=== PATIENT | male | born 1995 | race Caucasian/White ===

== ENCOUNTER 2022-03-17 22:00 | Emergency (ER) | payer OTHER, SELFPAY ==
[2022-03-17 22:04] VITALS: BP 145/110; PULSE 129; RESP 16; TEMP 36.6; O2SAT 97
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
[2022-03-18 00:18] VITALS: RESP 16
[2022-03-18] MEDS: oxyCODONE-APAP 5-325 mg Tablet 2 TAB PO (00:18)
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
== END 2022-03-18 03:22 | disposition home or self-care (01) ==
PROVIDERS: Emergency Provider Emergency Medicine
DX: S02.2XXA Fracture of nasal bones, initial encounter for closed fracture (principal); Y04.2XXA Assault by strike against or bumped into by another person, initial encounter
CPT/HCPCS: 70450; 70486; 72125; 99284

== ENCOUNTER 2023-01-22 13:10 | Emergency (ER) | payer OTHER, SELFPAY ==
[2023-01-22 13:24] VITALS: PULSE 111; RESP 17; TEMP 36.8; O2SAT 97; BMI 30.4
--- NOTE | 2023-01-22 13:34 | ECG_ITS ---
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 Measurements Intervals [place] Rate: 108 P: 23 SC: 147 QRS: 36 QRSD: 82 T: 31 QT: 306 QTc: 412 Interpretive Statements SINUS TACHYCARDIA ABNORMAL RHYTHM ECG No previous ECG available for comparison Electronically Signed On 01-22-2023 17:17:49 CDT by Amanda Ivory M.D. [id number]
--- NOTE | 2023-01-22 14:23 | XRR_ITS ---
PROCEDURE INFORMATION: Exam: XR Chest Exam date and time: 01/22/2023 2:55 PM Age: 27 years old Clinical indication: Pain; Cough and dyspnea; Chest pressure; Patient HX: Chest tightness, dizzy; Additional info: Dyspnea/cough.No history of trauma or recent surgery is provided. TECHNIQUE: Imaging protocol: Radiologic exam of the chest. 1image(s) are provided. Views: 1 view. COMPARISON: CT cervical spin wo con* [id number] 03/18/2022 1:[address] abdomen lung base report of 10/17/2010. No previous chest radiograph is currently available. FINDINGS: Lungs: No lobar consolidation is appreciated. Pleural spaces: No pneumothorax or pleural effusion is appreciated. Heart/Mediastinum: The cardiomediastinal silhouette is within normal. No cardiac decompensation is appreciated. Diaphragm: The hemidiaphragms are symmetric. Bones/joints: Osseous alignment is maintained.No displaced fracture or dislocation is appreciated. Soft tissues: No radiopaque foreign body or subcutaneous emphysema is appreciated. XR/XR chest 1V portable [id number] IMPRESSION: No lobar consolidation is appreciated.No acute cardiopulmonary changes are appreciated.
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
[2023-01-22 14:55] LABS: Basophils # 0.1 10^3/uL (0.0-0.1); Basophils % 0.7 %; Eosinophils % 0.2 %; Hematocrit 55.1 % (42.0-52.0); Hemoglobin 17.9 g/dL (11.7-16.6); Lymphocytes # 1.9 10^3/uL (0.8-4.8); Lymphocytes % 15.2 %; Mean Corpuscular HGB Conc 32.5 g/dL (30.0-36.0); Mean Corpuscular Hemoglobin 30.7 pg (28.0-34.0); Mean Corpuscular Volume 94.3 fl (80-94); Monocytes # 0.7 10^3/uL (0.2-0.9); Monocytes % 5.8 %; Neutrophils % 77.8 %; Nucleated Red Blood Cells % 0 %; Platelet Count 363 10^3/cmm (130-400); Red Blood Count 5.84 10^6/uL (4.1-5.3); Red Cell Distribution Width 11.8 % (12.1-15.1); White Blood Count 12.5 10^3/uL (4.0-10.0)
[2023-01-22 15:15] LABS: Troponin(5th) Baseline 6 ng/L (0-15)
[2023-01-22 15:20] LABS: Anion Gap 19.2 (5-19); Blood Urea Nitrogen 14 mg/dL (6-20); Calcium 10.6 mg/dL (8.5-10.5); Carbon Dioxide 21 mmol/L (22-29); Chloride 98 mmol/L (98-107); Glucose 76 mg/dL (65-115); Osmolality Calculated 277 mOsm/kg (285-295); Potassium 4.2 mmol/L (3.5-5.1); Sodium 134 mmol/L (136-145)
[2023-01-22 16:09] VITALS: BP 132/110; PULSE 111; RESP 27; O2SAT 97
--- NOTE | 2023-01-22 16:37 | ECG_ITS ---
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 Measurements Intervals [place] Rate: 101 P: 22 CT: 157 QRS: 14 QRSD: 80 T: 24 QT: 320 QTc: 415 Interpretive Statements SINUS TACHYCARDIA ABNORMAL RHYTHM ECG Compared to ECG 01/22/2023 13:34:23 No significant changes Electronically Signed On 01-22-2023 17:18:09 CDT by Amanda Ivory M.D. [id number]
[2023-01-22 16:58] LABS: Troponin 5 2HR Delta 0 ABS# (0-10)
[2023-01-22 18:00] VITALS: BP 139/86; PULSE 108; RESP 18; O2SAT 97
== END 2023-01-22 18:07 | disposition home or self-care (01) ==
PROVIDERS: Emergency Provider Family Medicine
DX: R07.89 Other chest pain (principal); M54.2 Cervicalgia
CPT/HCPCS: 36415; 71045; 80048; 84484; 85025; 93005; 99285

== ENCOUNTER 2024-08-19 20:00 | Outpatient (CLI) | payer OTHER, SELFPAY | END 2024-08-19 20:01 | disposition home or self-care (01) | LOC: SLEEP 23:50 | PROVIDERS: Visit Provider Nurse Practitioner Family | DX: G47.33 Obstructive sleep apnea (adult) (pediatric) (principal) | CPT/HCPCS: 95811 ==